=== PATIENT | female | born 1975 | race Caucasian/White ===

== ENCOUNTER 2017-08-03 18:06 | Inpatient (IN) | payer MEDICAID, OTHER ==
[~2017-08-03] VITALS: Ht 153.4 cm; Wt 69.3 kg
[~2017-08-03 18:06] MED LIST: [UNRECOGNIZED DRUG - REMARK]
[2017-08-03 18:45] LABS: BASOPHILS % (AUTO) 0.4 % (0.0-2.0); EOSINOPHILS % (AUTO) 0.1 % (1.0-6.0); HEMATOCRIT 32.8 % (36-46); HEMOGLOBIN 10.3 g/dL (12.0-16.0); LYMPHOCYTES % (AUTO) 17.8 % (22.0-44.0); MEAN CORPUSCULAR HEMOGLOBIN 18.8 pg (26.0-34.0); MEAN CORPUSCULAR HGB CONC 31.6 G/dL (31.0-37.0); MEAN CORPUSCULAR VOLUME 60 fL (80-100); MONOCYTES # (AUTO) 1.2 K/uL (0.1-1.0); MONOCYTES % (AUTO) 10.4 % (2.0-9.0); NEUTROPHILS # (AUTO) 8.1 K/uL (1.8-7.7); NEUTROPHILS % (AUTO) 71.3 % (40.0-70.0); PLATELET COUNT (AUTO) 322 K/uL (150-450); RED BLOOD CELL COUNT(AUTO) 5.51 MIL/uL (4.00-5.20); RED CELL DISTRIBUTION WIDTH 15.9 % (11.5-14.5)
[2017-08-03 18:54] LABS: ANION GAP 13 mmol/L (8-16); CALCIUM, TOTAL 8.6 mg/dL (8.8-10.5); CARBON DIOXIDE 24 mmol/L (22-29); CHLORIDE 103 mmol/L (98-107); CREATININE 0.76 mg/dL (0.60-1.30); GLOMERULAR FILTR. RATE CALC > 60 mL/min (>60); GLUCOSE,RANDOM 82 mg/dL (70-110); POTASSIUM 3.2 mmol/L (3.5-5.1); SODIUM SERUM 140 mmol/L (136-145); UREA NITROGEN, BLOOD 15 mg/dL (7-18)
[2017-08-03 18:59] LABS: ALANINE AMINOTRANSFERASE 60 U/L (12-78); ALBUMIN 3.5 g/dL (3.4-5.0); ALKALINE PHOSPHATASE 53 U/L (46-116); ASPARTATE AMINOTRANSFERASE 166 U/L (15-37); BILIRUBIN,TOTAL 0.6 mg/dL (0.1-1.0); TOTAL PROTEIN, SERUM 7.4 g/dL (6.4-8.2)
[2017-08-03 19:27] LABS: PATHOLOGY REVIEW, DIFF YES
[2017-08-03] MEDS ORDERED: LORazepam 2 MG TABLET PO ONE (19:45)
[2017-08-03] MEDS ORDERED: HALOPERIDOL 5 MG TABLET PO ONE (19:45)
[2017-08-03] MEDS ORDERED: ZOLPIDEM TARTRATE 10 MG TABLET PO PRN (22:45)
[2017-08-03] MEDS ORDERED: HALOPERIDOL 5 MG TABLET PO PRN (22:45)
[2017-08-03] MEDS ORDERED: ACETAMINOPHEN 325 MG TABLET PO PRN (22:45)
[2017-08-03] MEDS ORDERED: LORazepam 2 MG TABLET PO PRN (22:45)
[2017-08-03] MEDS ORDERED: MAGNESIUM HYDROXIDE SUSPENSION 30 ML UDCUP PO PRN (22:45)
[2017-08-04] MEDS ORDERED: POTASSIUM CHLORIDE 20 MEQ ER TABLET PO ONE (00:15)
[2017-08-04 01:20] VITALS: BP 106/54
[2017-08-04 09:19] VITALS: BP 100/51
[2017-08-04] MEDS: OLANZapine 5 MG RAPDIS TABLET PO SCH ×2 (10:11→17:38)
[2017-08-04] MEDS ORDERED: IBUPROFEN 400 MG TABLET PO PRN (10:15)
[2017-08-04] MEDS ORDERED: ACETAMINOPHEN 325 MG TABLET PO PRN (10:15)
[2017-08-04] MEDS: FERROUS SULFATE 325 MG EC TABLET PO SCH ×2 (12:28→17:38)
[2017-08-04 17:00] VITALS: BP 107/61
[2017-08-05] MEDS: FERROUS SULFATE 325 MG EC TABLET PO SCH ×3 (07:01→16:49)
[2017-08-05 08:00] VITALS: BP 120/68
[2017-08-05] MEDS: OLANZapine 5 MG RAPDIS TABLET PO SCH ×2 (09:52→16:49)
[2017-08-05] MEDS: BACITRACIN 28.4 GM OINTMENT TP SCH (16:50)
[2017-08-05 20:23] VITALS: BP 119/71
[2017-08-06] MEDS: FERROUS SULFATE 325 MG EC TABLET PO SCH ×3 (06:56→16:39)
[2017-08-06 08:00] VITALS: BP 102/67
[2017-08-06] MEDS: BACITRACIN 28.4 GM OINTMENT TP SCH ×2 (09:00→16:39)
[2017-08-06] MEDS: OLANZapine 5 MG RAPDIS TABLET PO SCH ×2 (10:01→16:39)
[2017-08-06 16:32] VITALS: BP 119/62
[2017-08-06] MEDS: MAG HYDROX/AL HYDROX/SIMETH ES 30 ML SUSPENSION UDCUP PO PRN (19:46)
[2017-08-07] MEDS: FERROUS SULFATE 325 MG EC TABLET PO SCH ×3 (06:35→17:16)
[2017-08-07 08:00] VITALS: BP 119/67
[2017-08-07] MEDS: BACITRACIN 28.4 GM OINTMENT TP SCH ×2 (09:00→17:16)
[2017-08-07] MEDS: OLANZapine 10 MG TABLET PO SCH ×2 (10:27→17:16)
[2017-08-07 16:54] VITALS: BP 104/75
[2017-08-08] MEDS: FERROUS SULFATE 325 MG EC TABLET PO SCH ×3 (07:02→19:11)
[2017-08-08 08:00] VITALS: BP 110/94
[2017-08-08] MEDS: OLANZapine 10 MG TABLET PO SCH ×2 (08:48→16:20)
[2017-08-08] MEDS: BACITRACIN 28.4 GM OINTMENT TP SCH ×2 (08:49→16:20)
[2017-08-08 20:36] VITALS: BP 115/74
[2017-08-09] MEDS: FERROUS SULFATE 325 MG EC TABLET PO SCH ×3 (06:36→17:16)
[2017-08-09 08:30] VITALS: BP 115/81
[2017-08-09] MEDS: BACITRACIN 28.4 GM OINTMENT TP SCH ×2 (09:00→17:15)
[2017-08-09] MEDS: OLANZapine 10 MG TABLET PO SCH ×2 (09:45→17:17)
[2017-08-09] MEDS: PALIPERIDONE 3 MG ER TABLET PO SCH (12:33)
[2017-08-09 17:30] VITALS: BP 120/63
[2017-08-10] MEDS: FERROUS SULFATE 325 MG EC TABLET PO SCH ×3 (06:56→17:00)
[2017-08-10 08:00] VITALS: BP 106/57
[2017-08-10] MEDS: OLANZapine 10 MG TABLET PO SCH ×2 (08:48→17:00)
[2017-08-10] MEDS: PALIPERIDONE 3 MG ER TABLET PO SCH (08:48)
[2017-08-10] MEDS: BACITRACIN 28.4 GM OINTMENT TP SCH ×2 (09:00→17:00)
[2017-08-10] MEDS: MAG HYDROX/AL HYDROX/SIMETH ES 30 ML SUSPENSION UDCUP PO PRN (12:53)
[2017-08-10 22:34] VITALS: BP 101/65
[2017-08-11] MEDS: FERROUS SULFATE 325 MG EC TABLET PO SCH ×3 (06:50→17:32)
[2017-08-11] MEDS: PALIPERIDONE 3 MG ER TABLET PO SCH (08:42)
[2017-08-11] MEDS: OLANZapine 10 MG TABLET PO SCH ×2 (08:42→17:34)
[2017-08-11] MEDS: BACITRACIN 28.4 GM OINTMENT TP SCH ×2 (08:43→17:32)
[2017-08-11 09:15] VITALS: BP 111/69
[2017-08-11] MEDS ORDERED: PALIPERIDONE PALMITATE 234 MG/1.5 ML SYRINGE IM ONE (12:30)
[2017-08-11 18:55] VITALS: BP 110/70
[2017-08-12] MEDS: FERROUS SULFATE 325 MG EC TABLET PO SCH ×3 (06:40→17:40)
[2017-08-12 08:02] VITALS: BP 123/74
[2017-08-12] MEDS: BACITRACIN 28.4 GM OINTMENT TP SCH ×2 (09:00→17:42)
[2017-08-12] MEDS: OLANZapine 10 MG TABLET PO SCH ×2 (10:35→17:40)
[2017-08-12] MEDS: PALIPERIDONE 3 MG ER TABLET PO SCH (10:35)
[2017-08-12 22:12] VITALS: BP 107/64
[2017-08-13] MEDS: FERROUS SULFATE 325 MG EC TABLET PO SCH ×2 (06:52→12:31)
[2017-08-13 08:46] VITALS: BP 111/69
[2017-08-13] MEDS: BACITRACIN 28.4 GM OINTMENT TP SCH (09:00)
[2017-08-13] MEDS: PALIPERIDONE 3 MG ER TABLET PO SCH (09:12)
[2017-08-13] MEDS: OLANZapine 10 MG TABLET PO SCH (09:12)
[2017-08-13] MEDS ORDERED: PALI3 PO (10:51)
[2017-08-13] MEDS ORDERED: OLAN10TA3 PO (10:51)
[2017-08-13] MEDS ORDERED: FERR-89 PO (10:55)
[2017-08-13] MEDS ORDERED: MUPI1OIN4 TP (10:55)
[2017-08-13] MEDS ORDERED: BACI120O TP (10:57)
== END 2017-08-13 14:55 | disposition home or self-care (01) | DRG 753 ==
LOC: EMS 18:07 → 3EI 08-04 00:01
PROVIDERS: ADMIT Psychiatry & Neurology Psychiatry; ATTEND Psychiatry & Neurology Psychiatry
DX: F31.2 Bipolar disorder, current episode manic severe with psychotic features (principal); R45.851 Suicidal ideations; Z91.14 Patient's other noncompliance with medication regimen; E87.6 Hypokalemia; D64.9 Anemia, unspecified; D72.829 Elevated white blood cell count, unspecified; F41.9 Anxiety disorder, unspecified; R74.0 Nonspecific elevation of levels of transaminase and lactic acid dehydrogenase [LDH]; F15.90 Other stimulant use, unspecified, uncomplicated; F10.10 Alcohol abuse, uncomplicated; F17.210 Nicotine dependence, cigarettes, uncomplicated; Z91.19 Patient's noncompliance with other medical treatment and regimen; Z91.048 Other nonmedicinal substance allergy status
CPT/HCPCS: 83036; 84132; 93005; 99285; G0480